=== PATIENT | female | born 1930 | race Caucasian/White ===

== ENCOUNTER 2017-05-27 18:14 | Inpatient (IN) | payer OTHER ==
[~2017-05-27] VITALS: Ht 167.6 cm; Wt 78.3 kg
[2017-05-28 00:30] VITALS: BP 154/82
[2017-05-28 01:03] LABS: HDL CHOLESTEROL 29 MG/DL (Desirable>=50); LDL CHOLESTEROL 121 mg/dL (Desirable<100); NON-HDL CHOLESTEROL 160 mg/dL (Desirable<160); TOTAL CHOLESTEROL 189 mg/dL (Desirable<200); TRIGLYCERIDES 196 MG/DL (Normal: <150)
[2017-05-28 04:33] VITALS: BP 158/70
[2017-05-28 06:54] LABS: HEMATOCRIT 38.6 % (36.0-46.0); HEMOGLOBIN 12.6 G/DL (11.9-15.5); MCH 31.3 PG (29.0-34.0); MCHC 32.6 G/DL (30.0-36.0); PLATELET COUNT 306 K/uL (156-360); RBC DIS.WIDTH-CV 13.6 % (11.8-14.6); RED BLOOD COUNT 4.02 M/uL (3.80-5.20); WHITE BLOOD COUNT 9.5 K/uL (4.1-10.2)
[2017-05-28 07:09] LABS: CHLORIDE 113 MEQ/L (99-109); POTASSIUM 4.3 MEQ/L (3.7-5.4); SODIUM 140 MEQ/L (136-147)
[2017-05-28 07:14] LABS: CREATININE 1.3 MG/DL (0.6-1.3); GFR ESTIMATE (CALCULATED) 41 mL/min/; GLUCOSE 190 mg/dL (70-99); UREA NITROGEN (BUN) 29 mg/dL (9-23)
[2017-05-28 07:46] VITALS: BP 159/76
[2017-05-28 09:41] LABS: HEMOGLOBIN A1c (GLYCOHEMOGLOB) 10.4 % (Below 5.7)
[2017-05-28 12:07] VITALS: BP 167/70
[2017-05-28 16:00] VITALS: BP 178/88
[2017-05-28 19:28] VITALS: BP 166/68
[2017-05-29] VITALS (7 sets, daily range): BP systolic 140–168; BP diastolic 61–71
[2017-05-29 07:07] LABS: BASOPHIL (%) 0.7 % (0-1); BASOPHIL COUNT 0.1 K/uL (0-0.1); EOSINOPHIL (%) 3.7 % (0-5); EOSINOPHIL COUNT 0.3 K/uL (0-0.3); HEMATOCRIT 35.6 % (36.0-46.0); HEMOGLOBIN 11.5 G/DL (11.9-15.5); IMMATURE GRANULOCYTE (%) 0.6 % (0.0-0.7); LYMPHOCYTE (%) 28.5 % (15-42); LYMPHOCYTE COUNT 2.4 K/uL (1.0-2.8); MCH 31.3 PG (29.0-34.0); MCHC 32.3 G/DL (30.0-36.0); MCV 96.7 FL (83-99); MONOCYTE COUNT 0.8 K/uL (0-0.8); NEUTROPHIL (%) 57.5 % (45-76); NEUTROPHIL COUNT 4.9 K/uL (1.8-6.4); PLATELET COUNT 307 K/uL (156-360); RBC DIS.WIDTH-CV 13.5 % (11.8-14.6); RBC DIS.WIDTH-SD 48.3 % (39-53); RED BLOOD COUNT 3.68 M/uL (3.80-5.20); WHITE BLOOD COUNT 8.5 K/uL (4.1-10.2)
[2017-05-29 07:35] LABS: CHLORIDE 113 MEQ/L (99-109); CREATININE 1.3 MG/DL (0.6-1.3); GFR ESTIMATE (CALCULATED) 41 mL/min/; GLUCOSE 131 mg/dL (70-99); MAGNESIUM 1.9 mg/dl (1.3-2.7); SODIUM 142 MEQ/L (136-147); UREA NITROGEN (BUN) 24 mg/dL (9-23)
[2017-05-30 03:58] VITALS: BP 147/62
[2017-05-30 08:04] VITALS: BP 154/70
[2017-05-30 16:34] VITALS: BP 160/68
[2017-05-30 19:30] VITALS: BP 142/80
[2017-05-30 23:20] VITALS: BP 160/69
[2017-05-31 03:51] VITALS: BP 131/58
[2017-05-31 06:49] LABS: BASOPHIL (%) 0.6 % (0-1); BASOPHIL COUNT 0.1 K/uL (0-0.1); EOSINOPHIL (%) 4.9 % (0-5); EOSINOPHIL COUNT 0.4 K/uL (0-0.3); HEMATOCRIT 37.4 % (36.0-46.0); HEMOGLOBIN 12.1 G/DL (11.9-15.5); IMMATURE GRANULOCYTE (%) 0.4 % (0.0-0.7); LYMPHOCYTE (%) 28.3 % (15-42); LYMPHOCYTE COUNT 2.6 K/uL (1.0-2.8); MCH 31.3 PG (29.0-34.0); MCHC 32.4 G/DL (30.0-36.0); MCV 96.6 FL (83-99); MONOCYTE (%) 7.8 % (3-12); MONOCYTE COUNT 0.7 K/uL (0-0.8); NEUTROPHIL COUNT 5.3 K/uL (1.8-6.4); PLATELET COUNT 271 K/uL (156-360); RBC DIS.WIDTH-CV 13.5 % (11.8-14.6); RBC DIS.WIDTH-SD 47.8 % (39-53); RED BLOOD COUNT 3.87 M/uL (3.80-5.20); WHITE BLOOD COUNT 9.1 K/uL (4.1-10.2)
[2017-05-31 07:05] LABS: CHLORIDE 111 MEQ/L (99-109); CREATININE 1.4 MG/DL (0.6-1.3); GFR ESTIMATE (CALCULATED) 38 mL/min/; GLUCOSE 123 mg/dL (70-99); MAGNESIUM 1.9 mg/dl (1.3-2.7); POTASSIUM 4.4 MEQ/L (3.7-5.4); SODIUM 141 MEQ/L (136-147); UREA NITROGEN (BUN) 21 mg/dL (9-23)
[2017-05-31 08:02] VITALS: BP 156/66
[2017-05-31 16:58] VITALS: BP 142/63
[2017-06-01] VITALS: BP 139/66
[2017-06-01 06:42] LABS: CHLORIDE 110 MEQ/L (99-109); CREATININE 1.5 MG/DL (0.6-1.3); GFR ESTIMATE (CALCULATED) 35 mL/min/; POTASSIUM 4.3 MEQ/L (3.7-5.4); SODIUM 143 MEQ/L (136-147); UREA NITROGEN (BUN) 25 mg/dL (9-23)
[2017-06-01 06:44] LABS: GLUCOSE 78 mg/dL (70-99)
[2017-06-01 07:57] VITALS: BP 144/67
[2017-06-01] MEDS ORDERED: ATORVASTATIN CA80 MG PO (11:45)
[2017-06-01] MEDS ORDERED: AMLODIPINE BESY10 MG PO (11:45)
[2017-06-01] MEDS ORDERED: NOVOLOG 10100 UNITS/ SC (11:45)
[2017-06-01] MEDS ORDERED: ASPIRIN EC325 MG PO (11:45)
[2017-06-01] MEDS ORDERED: LEVEMIR100 UNIT/2 SC (11:47)
[2017-06-01 16:27] VITALS: BP 142/67
[2017-06-02 07:58] VITALS: BP 138/71
[2017-06-02 16:13] VITALS: BP 135/61
[2017-06-02 23:49] VITALS: BP 155/68
[2017-06-03 06:39] LABS: CHLORIDE 105 MEQ/L (99-109); CREATININE 1.6 MG/DL (0.6-1.3); GFR ESTIMATE (CALCULATED) 32 mL/min/; POTASSIUM 4.8 MEQ/L (3.7-5.4); SODIUM 141 MEQ/L (136-147); UREA NITROGEN (BUN) 31 mg/dL (9-23)
[2017-06-03 06:42] LABS: GLUCOSE 190 mg/dL (70-99)
[2017-06-03 08:21] VITALS: BP 148/61
== END 2017-06-03 14:08 | DRG 65 ==
LOC: EME 18:14 → EDOF 21:13 → 5SOUTH 21:13 → ENRESERV 21:15 → 5SOUTH 05-28 00:09 → EDOF 05-28 00:09 → 5SOUTH 06-03 14:08
PROVIDERS: Family Medicine; Physician Assistant; Physician Assistant Medical
DX: I63.233 Cerebral infarction due to unspecified occlusion or stenosis of bilateral carotid arteries (principal); N17.9 Acute kidney failure, unspecified; I12.9 Hypertensive chronic kidney disease with stage 1 through stage 4 chronic kidney disease, or unspecified chronic kidney disease; N18.3 Chronic kidney disease, stage 3 (moderate); E11.22 Type 2 diabetes mellitus with diabetic chronic kidney disease; Z66 Do not resuscitate; G83.11 Monoplegia of lower limb affecting right dominant side; B91 Sequelae of poliomyelitis; Z91.81 History of falling; Z60.2 Problems related to living alone; Z75.1 Person awaiting admission to adequate facility elsewhere
CPT/HCPCS: 70551; 80048; 80061; 81003; 82948; 83036; 83735; 85025; 85027; 92523 GN; 92526 GN; 92610 GN; 93306; 93880; 97530 GO; 99281; 99284; J1650; J1815; J7030; J7040